=== PATIENT | female | born 1945 | race Caucasian/White ===

== ENCOUNTER 2019-09-18 18:36 | Inpatient (IN) | payer MEDICARE ==
[2019-09-18 19:26] LABS: #Basophils 0.1 thou/uL (0.0-0.2); #Eosinphils 0.2 thou/uL (0.0-0.7); #Lymphocytes 3.2 thou/uL (1.20-3.40); #Neutrophils 5.4 thou/uL (1.40-6.50); %Basophils 0.9 % (0.0-1.0); %Eosinophils 2.2 % (0.0-10.0); %Lymphocytes 32.7 % (21.0-51.0); %Monocytes 9.6 % (0.0-10.0); %Neutrophils 54.6 % (42.0-75.0); Hemoglobin 12.7 g/dL (12.0-16.0); Mean Corpuscular HGB CONC 33.4 g/dL (32.0-36.0); Mean Corpuscular Hemoglobin 29.1 pg (27.0-31.0); Mean Corpuscular Volume 87.1 fL (78.0-98.0); Mean Platelet Volume 8.3 fL (7.4-10.4); Platelet Count 191 thou/uL (130-400); RBC Distribution Width 12.6 % (11.5-14.5); Red Blood Cell (RBC) Count 4.35 mill/uL (4.20-5.40); White Blood Cell (WBC) Count 9.9 thou/uL (4.8-10.8)
[2019-09-18 19:47] LABS: Bacteria/HPF None Seen HPF (None Seen); Bilirubin Negative (Negative); Blood, Urine Negative (Negative); Clarity Clear (Clear); Glucose, Urine (Dipstick) 200 mg/dL (Negative); Leukocyte 25 Leu/uL (Negative); Nitrite Negative (Negative); Protein, Urine (Dipstick) Negative (Neg-Trace); RBC/HPF 0-3 HPF (0-3); Squamous Epithelial 0-3 HPF (0-3); Urobilinogen Normal mg/dL (Less than 2)
[2019-09-18 19:47] LABS: ALT (SGPT) 17 U/L (8-55); AST (SGOT) 18 U/L (5-34); Albumin 4.1 g/dL (3.4-4.8); Alkaline Phosphatase 181 U/L (40-110); Anion Gap 12 mmol/L (10-20); BUN (Urea Nitrogen) 14 mg/dL (9.8-20.1); Bilirubin, Total 1.1 mg/dL (0.2-1.2); Calc. Creatinine Clearance 0 mL/min (70-130); Calcium 9.8 mg/dL (7.8-10.44); Carbon Dioxide 29 mmol/L (23-31); Chloride 104 mmol/L (98-107); Estimated GFR-MDRD 65; Globulin 3.3 g/dL (2.4-3.5); Glucose 110 mg/dL (83-110); Potassium 3.5 mmol/L (3.5-5.1); Protein, Total 7.4 g/dL (6.0-8.3); Sodium 141 mmol/L (136-145)
[2019-09-18] MEDS ORDERED: Lorazepam 1 MG TAB PO PRN (23:55)
[2019-09-18] MEDS ORDERED: hydrALAZINE 20 MG/ML VIAL SLOW IVP PRN (23:56)
[2019-09-18] MEDS ORDERED: Dextrose 5% in Water 1,000 ML IV PRN (23:57)
[2019-09-18] MEDS ORDERED: tiZANidine HCl 4 MG TAB PO PRN (23:57)
[2019-09-18] MEDS ORDERED: Insulin Regular 300 UNITS/3 ML VIAL SC PRN ×2 (23:57)
[2019-09-18] MEDS ORDERED: Dextrose 50% Abboject 50 ML SYRINGE SLOW IVP PRN (23:57)
[2019-09-18] MEDS ORDERED: HYDROcodone/Acetaminophen 10/325 mg Tablet PO PRN (23:57)
[2019-09-19 01:46] VITALS: BMI 27.4
--- NOTE | 2019-09-19 03:41 | PDOC.EVN ---
Event Note - Event Note Event Note: PCP Dr Echols. Care transferred to resident team
[2019-09-19] MEDS ORDERED: Acetaminophen 325 MG TAB PO PRN (05:25)
[2019-09-19] MEDS ORDERED: Ondansetron ODT 4 MG TAB PO PRN (05:25)
--- NOTE | 2019-09-19 05:40 | PDOC.FPRHP ---
- History of Present Illness Chief Complaint: R sided foot and hand numbness History of Present Illness: 74 y/o F with pmhx of prior CVA with L sided residual weakness, DM II, HTN, CAD s/p stent, and hypothyroidism presents to [facility] via transfer from [place] ED. Pt had initial R finger tingling/numbness on Friday starting at 1200. She states this sensation gradually spread up her mid arm and then started in her R toe and foot. She developed slurred speech and unsteady gait Oh night. Pt thought she would get better, but did not improve overnight, prompting her to go to the ER. Pt states "I was walking and talking funny." Pt originally went to her clinic in [place], but was sent directly ER for her stroke like symptoms. + OLGUIN off/on in the frontal region. + v/n, X2 episodes since onset of symptoms. denies falls or vision changes. ED course: CT head: L-thalamic infarct. No acute hemorrhage. - Allergies/Adverse Reactions Allergies Allergy/AdvReac Type Severity Reaction Status Date / Time No Known Drug Allergies Allergy Verified 09/18/19 23:22 - Home Medications Medication Instructions Recorded Confirmed Type Amlodipine [Norvasc] 5 mg PO DAILY 09/18/19 09/19/19 History Aspirin [Ecotrin Low Strength] 81 mg PO DAILY 09/18/19 09/19/19 History Benazepril HCl 1 tab PO DAILY 09/18/19 09/19/19 History Glimepiride 4 mg PO DAILY 09/18/19 09/19/19 History Hydrocodone Bit/Acetaminophen 325 mg PO DAILY 09/18/19 09/19/19 History [HYDROcodone Bit/Acetaminophen] Levothyroxine Sodium [Synthroid] 100 mcg PO DAILY 09/18/19 09/19/19 History Oxybutynin [Ditropan] 5 mg PO BID 09/18/19 09/19/19 History Prasugrel [Effient] 10 mg PO DAILY 09/18/19 09/19/19 History metFORMIN HCl 1,000 mg PO QAM 09/18/19 09/19/19 History metFORMIN [Glucophage] 500 mg PO HS 09/18/19 09/19/19 History tiZANidine HCl [Tizanidine HCl] 4 mg PO DAILY 09/18/19 09/19/19 History - History PMHx: CVA 20 years ago with L sided residual weakness, DM II, HTN, CAD s/p stent , hypothyroidsim PSHx: BTL, R-wrist sx, l-eye cataract, stent last year FHx: mother: Alzheimer's disease, CHF. Father: CAD, [place] PCP: Dr. Echols Aquarium Tank Attendant: Dr. Francois - Review of Systems General: denies: fever/chills, night sweats Eyes: denies: eye pain, vision changes ENT: denies: nasal congestion, rhinorrhea Respiratory: denies: cough, shortness of breath Cardiovascular: denies: chest pain, edema Gastrointestinal: reports: nausea, vomiting. denies: diarrhea, abdominal pain Skin: denies: rashes Neurological: reports: numbness (R-hand, arm, foot, toes.), weakness (L sided residual). denies: syncope, seizure - Vital signs BP: 158/66 HR: 65 RR: 16 Tmax: 98.4 Pox: 96% on ra Wt: 77 kg - Physical Exam Constitutional: NAD, awake, alert and oriented, well developed HEENT: normocephalic and atraumatic, PERRLA, EOMI, conjunctiva clear, no scleral icterus, grossly normal vision, grossly normal hearing, MMM, oropharynx clear, good dention Neck: supple, FROM, trachea midline, no LAD, no JVD, no thyromegaly Chest: no-tender to palpation, no lesions Heart: RRR, pulses present, no edema, other (2/6 sys murmur) Lungs: CTAB, no respiratory distress, good air movement, no rales/rhonchi, no wheezing, no retractions Abdomen: soft, non-tender, bowel sounds present, no masses/distention, no hernias Musculoskeletal: normal structure, normal tone, ROM grossly normal Neurological: CN II-XII intact -Neurological: Diminished sensation over R fingers, hand, up to mid forearm Diminished sensation over R toes and foot. 4/5 strength in Upper and Lower R and Left extremities. Udee-lb-ysed intact bilaterally. slowed rapid hand alternating movements worse on L than R. Finger to nose intact bilaterally. Negative pronator drift Skin: no rash/lesions, good turgor, capillary refill <2 seconds -Skin: ecchymosis over arms Heme/Lymphatic: no purpura, no petechia Psychiatric: normal mood and affect, good judgment and insight, intact recent and remote memory FMR H&P: Results - Labs Result Diagrams: 09/18/19 19:15 09/18/19 19:15 Lab results: WBC 9.9 thou/uL (4.8-10.8) 09/18/19 19:15 Hgb 12.7 g/dL (12.0-16.0) 09/18/19 19:15 Hct 37.9 % (36.0-47.0) 09/18/19 19:15 MCV 87.1 fL (78.0-98.0) 09/18/19 19:15 Plt Count 191 thou/uL (130-400) 09/18/19 19:15 Neutrophils % 54.6 % (42.0-75.0) 09/18/19 19:15 Sodium 141 mmol/L (136-145) 09/18/19 19:15 Potassium 3.5 mmol/L (3.5-5.1) 09/18/19 19:15 Chloride 104 mmol/L (98-107) 09/18/19 19:15 Carbon Dioxide 29 mmol/L (23-31) 09/18/19 19:15 BUN 14 mg/dL (9.8-20.1) 09/18/19 19:15 Creatinine 0.86 mg/dL (0.6-1.1) 09/18/19 19:15 Glucose 110 mg/dL (83-110) 09/18/19 19:15 Calcium 9.8 mg/dL (7.8-10.44) 09/18/19 19:15 Total Bilirubin 1.1 mg/dL (0.2-1.2) 09/18/19 19:15 AST 18 U/L (5-34) 09/18/19 19:15 ALT 17 U/L (8-55) 09/18/19 19:15 Alkaline Phosphatase 181 U/L (40-110) H 09/18/19 19:15 Serum Total Protein 7.4 g/dL (6.0-8.3) 09/18/19 19:15 Albumin 4.1 g/dL (3.4-4.8) 09/18/19 19:15 Urine Ketones Negative mg/dL (Negative) 09/18/19 19:21 Urine Blood Negative (Negative) 09/18/19 19:21 Urine Nitrite Negative (Negative) 09/18/19 19:21 Ur Leukocyte Esterase 25 Swati/uL (Negative) 09/18/19 19:21 Urine RBC 0-3 HPF (0-3) 09/18/19 19:21 Urine WBC 4-6 HPF (0-3) A 09/18/19 19:21 Ur Squamous Epith Cells 0-3 HPF (0-3) 09/18/19 19:21 Urine Bacteria None Seen HPF (None Seen) 09/18/19 19:21 - Radiology Interpretation CT scan - head Status: report reviewed by me (L-sided thalamic infarct . No acute hemorrhage) FMR H&P: A/P - Problem List (1) TIA (transient ischemic attack) Current Visit: Yes Status: Acute Code(s): G45.9 - TRANSIENT CEREBRAL ISCHEMIC ATTACK, UNSPECIFIED (2) History of CVA (cerebrovascular accident) without residual deficits Current Visit: Yes Status: Acute (3) Hemiparesis, right Current Visit: Yes Status: Acute Code(s): G81.91 - HEMIPLEGIA, UNSPECIFIED AFFECTING RIGHT DOMINANT SIDE (4) HTN (hypertension) Current Visit: Yes Status: Acute Code(s): I10 - ESSENTIAL (PRIMARY) HYPERTENSION (5) CAD (coronary artery disease) Current Visit: Yes Status: Acute Code(s): I25.10 - ATHSCL HEART DISEASE OF [place] CORONARY ARTERY W/O ANG PCTRS (6) Hypothyroid Current Visit: Yes Status: Acute Code(s): E03.9 - HYPOTHYROIDISM, UNSPECIFIED - Plan 74 y/o F admitted to stroke obs for TIA, CVA rule out with R sided hemiparesis and hemioplegia 1. TIA/CVA rule out; R-sided Hemiparesis and hemiplegia; aphasia - CT head: neg for acute hemorrhage, showed l-thalamic infarct - Ordered MRI head, transthoracic echo, carotid dopplers - continue ASA, will start statin therapy. 2. Hx of previous CVA with L sided residual weakness. - 4/5 strength in L and R side. R sided weakness is new per pt. 3. Hx of HTN - will allow for permissive HTN and hold BP medication at this time. 4. Hx of DM II - goal glucose 140-180 while in hospital to decrease hypoglycemia risk. - restart home glucose medications metformin and glipizide. - Checking A1C. 5. Hx of CAD, s/p stent - TTE pending - no current chest pain, stable. 6. Hx of hypothyroidism - restart home medications. - will check TSH Code Statue: DNR, per pt Diet: CC, HH DVT ppx: SCD's Dispo: stable, admitted to stroke obs for TIA/CVA rule out with MRI. FMR H&P: Upper Level - Plan Date/Time: 09/19/19 0531 I, Uriah Nevarez MD, have evaluated this patient and agree with findings/ plan as outlined by engineering intern resident. Pertinent changes/additions are listed here. CVA vs TIA - Previous infarct seen on CT - MRI ordered for AM - Carotid Dopplers ordered for risk stratification HTN, HLD, CAD, Hypothyroidism - All other chronic conditions reviewed and medications to be restarted as appropriate PCP: Dr. Echols CODE STATUS: DNAR Disposition: Stable, will admit for further evaluation with MRI planned this AM.
[2019-09-19] MEDS ORDERED: Levothyroxine Sodium 100 MCG TAB PO SCH (06:00)
[2019-09-19 06:44] LABS: Hemoglobin A1c 7.7 % (4.0-6.0)
[2019-09-19] MEDS ORDERED: Calcium Carbonate 500 MG ChewTAB PO PRN (07:37)
[2019-09-19] MEDS ORDERED: Lorazepam 2 MG/ML VIAL SLOW IVP SCH (07:45)
[2019-09-19] MEDS ORDERED: Aspirin 81 mg Enteric Coated Tablet PO SCH (09:00)
[2019-09-19] MEDS ORDERED: Oxybutynin 5 MG TAB PO SCH (09:00)
[2019-09-19] MEDS ORDERED: Amlodipine 5 MG TAB PO SCH (09:00)
[2019-09-19] MEDS ORDERED: Glimepiride 4 MG TAB PO SCH (09:00)
[2019-09-19] MEDS ORDERED: Lisinopril 20 MG TAB PO SCH (09:00)
[2019-09-19] MEDS ORDERED: Prasugrel 10 MG TAB PO SCH (09:00)
[2019-09-19] MEDS: metFORMIN 500 MG TAB PO SCH ×2 (09:01→17:24)
[2019-09-19] MEDS: Prasugrel 10 MG TAB PO SCH (09:01)
[2019-09-19] MEDS: Glimepiride 4 MG TAB PO SCH (09:01)
[2019-09-19] MEDS: Aspirin 81 mg Enteric Coated Tablet PO SCH (09:01)
[2019-09-19] MEDS: Oxybutynin 5 MG TAB PO SCH ×2 (09:01→20:45)
--- NOTE | 2019-09-19 11:07 | HP ---
I have examined the patient and discussed the case with Dr. Ailyn Linares, and agree with her assessment and plan. HISTORY OF PRESENT ILLNESS: Briefly, Ms. Lobo is a pleasant 74-year-old white female with a prior history of stroke approximately 15-20 years ago. She presented with tingling and numbness and perhaps some mild weakness on her right side. She also had some slurred speech and unsteady gait. She was initially taken to [place] and transferred here for higher level of care. PHYSICAL EXAMINATION: GENERAL: On exam, her blood pressure is 158/66, heart rate is 65 and regular, respirations are 16, she is afebrile, her room air pulse ox is 96%. GENERAL: Currently, she is awake, alert, no distress. NECK: Supple. CARDIAC: Heart rhythm regular. No gallop or murmur noted. LUNGS: Clear. Diminished. No rales or wheezes. ABDOMEN: Flat and soft without guarding or rebound. NEUROLOGICAL: Slightly diminished strength bilaterally. Otherwise, no focal deficit. Currently, her speech is not slurred. LABORATORY DATA: CBC; white count is , hemoglobin 12.7, hematocrit 37.9 with an MCV of 87. Chemistries; sodium 141, potassium 3.5, chloride 104, bicarb 29, BUN 14, creatinine 0.86, glucose of 240. She had a CT done at the outlying ER facility showing an old lacunar infarct. ASSESSMENT: Transient ischemic attack versus stroke. PLAN: Admit. Get CTA of head and neck, echocardiogram, MRI and proceed based on findings. Begin aspirin and statin. Job ID: [id number]
--- NOTE | 2019-09-19 12:37 | MRI ---
EXAM: MRI Brain WO Con PROVIDED CLINICAL HISTORY: Ataxia, right-sided drift of arm and leg. Right-sided numbness and sensory loss. COMPARISON: CT head on 09/19/2019 obtained prior to this exam. FINDINGS: There is a focus of increased FLAIR and T2-weighted signal intensity in the left aspect of the jens c orresponding to the hypodense area seen on recent CT exam. This area does demonstrate restricted diffusion and is most compatible with an acute infarction in the left aspect of the jens. No addition al acute infarction is seen. Prominent motion artifact is present on multiple pulse sequences resulting in image degradation. Ther e is mild increased FLAIR and T2-weighted signal intensity in the periventricular white matter which is nonspecific but likely reflective of mild chronic small vessel ischemic changes. There is a linear area of decreased signal intensity within the left basal ganglia which extends laterally into the left posterior frontal lee radiata on gradient echo images suggesting hemosiderin deposit ion. This is in region of prior infarction is likely due to remote hemorrhagic infarction. There are additional increased T2-weighted signal intensity foci seen in each thalamus also seen on prior C T exam most compatible with remote lacunar infarctions. The septum pellucidum and third ventricle are in the midline. Ventricular system is normal in size, s hape, and position. Due to significant motion artifact, the intracranial flow voids are difficult to assess, but no gross abnormality is seen. The distal left vertebral artery flow-void is small in size. Mastoid effusions are seen bilaterally. Paranasal sinuses appear clear. IMPRESSION: 1. Acute lacunar infarction left thalamus 2. Remote lacunar infarctions in each thalamus. 3. Mild chronic small vessel ischemic changes. 4. Mastoid effusions bilaterally..
[2019-09-19] MEDS ORDERED: Iopamidol-370 76% 500 ML 1 ML ONE (13:43)
[2019-09-19] MEDS ORDERED: Dextrose 5% in Water 1,000 ML IV PRN (14:49)
[2019-09-19] MEDS ORDERED: HumaLOG 300 UNITS/3 ML VIAL SC PRN (14:49)
[2019-09-19] MEDS ORDERED: Dextrose 50% Abboject 50 ML SYRINGE SLOW IVP PRN (14:49)
[2019-09-19] MEDS: Atorvastatin Calcium 40 MG TAB PO SCH (20:45)
[2019-09-19] MEDS ORDERED: Atorvastatin Calcium 40 MG TAB PO SCH (21:00)
[2019-09-20 04:47] LABS: #Basophils 0.1 thou/uL (0.0-0.2); #Eosinphils 0.3 thou/uL (0.0-0.7); #Lymphocytes 3.4 thou/uL (1.20-3.40); #Monocytes 1.1 thou/uL (0.11-0.59); #Neutrophils 5.1 thou/uL (1.40-6.50); %Basophils 0.8 % (0.0-1.0); %Eosinophils 3.4 % (0.0-10.0); %Lymphocytes 34.1 % (21.0-51.0); %Monocytes 10.5 % (0.0-10.0); %Neutrophils 51.1 % (42.0-75.0); Hemoglobin 13.2 g/dL (12.0-16.0); Mean Corpuscular HGB CONC 32.4 g/dL (32.0-36.0); Mean Corpuscular Hemoglobin 28.4 pg (27.0-31.0); Mean Corpuscular Volume 87.8 fL (78.0-98.0); Mean Platelet Volume 8.4 fL (7.4-10.4); Platelet Count 205 thou/uL (130-400); RBC Distribution Width 12.9 % (11.5-14.5); Red Blood Cell (RBC) Count 4.65 mill/uL (4.20-5.40); White Blood Cell (WBC) Count 9.9 thou/uL (4.8-10.8)
[2019-09-20 05:14] LABS: ALT (SGPT) 18 U/L (8-55); AST (SGOT) 19 U/L (5-34); Alkaline Phosphatase 171 U/L (40-110); Anion Gap 13 mmol/L (10-20); BUN (Urea Nitrogen) 16 mg/dL (9.8-20.1); Bilirubin, Total 0.9 mg/dL (0.2-1.2); Calc. Creatinine Clearance 54 mL/min (70-130); Calcium 9.6 mg/dL (7.8-10.44); Carbon Dioxide 26 mmol/L (23-31); Chloride 103 mmol/L (98-107); Estimated GFR-MDRD 48; Globulin 3.4 g/dL (2.4-3.5); Glucose 154 mg/dL (83-110); Potassium 3.9 mmol/L (3.5-5.1); Protein, Total 7.4 g/dL (6.0-8.3); Sodium 138 mmol/L (136-145)
--- NOTE | 2019-09-20 05:20 | PDOC.FM ---
- Subjective Subjective: Patient reports she is doing well. Discussed findings on MRI/CTA. Patient surprised that she had another stroke, clearly frustrated. Discussed that we will continue with PT/OT and have CM see if patient can continue PT/OT outpatient, per patient's wishes, to get her back to baseline. Patient agreeable with plan of care. - Objective Vital Signs & Weight: Vital Signs (12 hours) Temp Pulse Resp BP Pulse Ox 09/20/19 04:00 98.2 F 82 16 190/66 H 96 09/20/19 00:14 98.2 F 64 18 143/55 H 97 09/19/19 20:10 98.5 F 79 16 122/70 96 Weight Weight 77.111 kg I&O: 09/18/19 09/19/19 09/20/19 06:59 06:59 06:59 Intake Total 600 Balance 600 Result Diagrams: 09/20/19 04:38 09/20/19 04:38 EKG Reviewed by me: Yes (sinus 60s-70s) Phys Exam - Physical Examination Constitutional: NAD HEENT: moist MMs, sclera anicteric Neck: supple, full ROM Respiratory: no wheezing, clear to auscultation bilateral Cardiovascular: RRR, no significant murmur Gastrointestinal: soft, non-tender Musculoskeletal: no edema, pulses present Neurological: moves all 4 limbs BLE and BUE 4/5 strength; some dysarthria noted Psychiatric: normal affect, A&O x 3 Skin: no rash, normal turgor Dx/Plan (1) CVA (cerebral vascular accident) Code(s): I63.9 - CEREBRAL INFARCTION, UNSPECIFIED Status: Acute (2) CAD (coronary artery disease) Code(s): I25.10 - ATHSCL HEART DISEASE OF [place] CORONARY ARTERY W/O ANG PCTRS Status: Chronic (3) HTN (hypertension) Code(s): I10 - ESSENTIAL (PRIMARY) HYPERTENSION Status: Chronic (4) Hemiparesis, right Code(s): G81.91 - HEMIPLEGIA, UNSPECIFIED AFFECTING RIGHT DOMINANT SIDE Status : Acute (5) History of CVA (cerebrovascular accident) without residual deficits Status: Chronic (6) Hypothyroid Code(s): E03.9 - HYPOTHYROIDISM, UNSPECIFIED Status: Chronic - Plan Plan: Patient is a 74F admitted to stroke obs for CVA with R sided hemiparesis and hemioplegia #CVA; R-sided Hemiparesis and hemiplegia; dysarthria - CT head: neg for acute hemorrhage, showed l-thalamic infarct - MRI head: L jens/thalamus acute lacunar infarct, consistent with CTA head/ neck - continue ASA, prasugrel, statin - PT rec rehab, patient states she would prefer outpatient pt/ot; post acute rehab screen today #Hx of previous CVA with L sided residual weakness. - 4/5 strength BLE and BUE. R sided weakness is new per pt. #Hx of HTN - re-starting home BP meds this am #Hx of DM II - continue home glucose medications metformin and glipizide. - A1C 7.7 #Hx of CAD, s/p stent - Echo: EF 55-60% - continue home meds - no current chest pain, stable. #Hx of hypothyroidism - continue home medications. Code Status: DNR Diet: CC, HH DVT ppx: SCD's Dispo: stable, admitted to stroke obs for CVA; post acute screen pending for outpatient PT/OT Addendum - Attending - Attending Attestation Date/Time: 09/20/19 8523 I personally evaluated the patient and discussed the management with Dr. Oreilly I agree with the History, Examination, Assessment and Plan documented above with any addition or exceptions noted below. Will consult Neurologyy as CVA ruled in . Discussed rehab option with patient she is good candidate albeit deconditioned as baseline prior to CVA. Instrument Tester to be consulted. Patient advised I believe she will fair better if she goes into rehab situation at least few weeks before attempting home.
[2019-09-20] MEDS: Levothyroxine Sodium 100 MCG TAB PO SCH (05:47)
[2019-09-20] MEDS: HumaLOG 300 UNITS/3 ML VIAL SC PRN ×2 (05:49→10:39)
[2019-09-20] MEDS: Amlodipine 5 MG TAB PO SCH (09:47)
[2019-09-20] MEDS: Glimepiride 4 MG TAB PO SCH (09:47)
[2019-09-20] MEDS: Aspirin 81 mg Enteric Coated Tablet PO SCH (09:47)
[2019-09-20] MEDS: metFORMIN 500 MG TAB PO SCH ×2 (09:47→17:08)
[2019-09-20] MEDS: Lisinopril 20 MG TAB PO SCH (09:47)
[2019-09-20] MEDS: Prasugrel 10 MG TAB PO SCH (09:48)
[2019-09-20] MEDS: tiZANidine HCl 4 MG TAB PO SCH (09:48)
[2019-09-20] MEDS: Oxybutynin 5 MG TAB PO SCH ×2 (09:48→21:07)
[2019-09-20] MEDS: Atorvastatin Calcium 40 MG TAB PO SCH (21:07)
--- NOTE | 2019-09-20 23:56 | CON ---
DATE OF CONSULTATION: 09/20/2019 HISTORY OF PRESENT ILLNESS: I was asked to see Ms. Lobo to evaluate her for carotid stenosis in the setting of a left hemispheric cerebrovascular accident. Ms. Lobo is a 74-year-old woman, who was admitted through the emergency department with right-sided arm and leg weakness along with slurred speech. Her weakness has improved, but her speech remains slurred. She has a history of right-sided cerebrovascular accident, which was managed in [place] approximately 20 years ago. She said she really did not have any therapy or changes in her medical regimen recommended at that time. She takes an aspirin only as anti-platelet agent currently. She has undergone coronary stent in not so distant past by Dr. Pee Francois. Currently, she is resting comfortably on the stroke unit without current complaint. PAST MEDICAL HISTORY: 1. Cerebrovascular accident involving the right brain approximately 20 years ago. 2. Diabetes mellitus. 3. Hypertension. 4. Coronary artery disease, status post stenting. 5. Hypothyroidism. PAST SURGICAL HISTORY: 1. BTL. 2. Right wrist surgery. 3. Cataract surgery. 4. Coronary stent. ALLERGIES: NONE. CURRENT MEDICATIONS: 1. Aspirin 81 mg daily. 2. Amlodipine 5 mg daily. 3. Benazepril daily. 4. Glimepiride 4 mg daily. 5. Levothyroxine 100 mcg daily. 6. Ditropan 5 mg b.i.d. 7. Effient 10 mg daily. 8. Metformin 1000 mg daily. 9. Tizanidine 4 mg daily. SOCIAL HISTORY: She does not use tobacco. PHYSICAL EXAMINATION: GENERAL: This is a well-developed, well-nourished woman, resting comfortably on the stroke unit. VITAL SIGNS: Her height is 5 feet 6 inches, weight is 170 pounds, BSA is 1.89, temperature is 98.1, pulse is 85 and regular, and blood pressure 135/74. NECK: Supple. She has bilateral carotid bruits. CHEST: Clear bilaterally. HEART: Rhythm is regular without murmur. ABDOMEN: Soft and nontender. EXTREMITIES: No edema. ASSESSMENT AND PLAN: This is a very pleasant 74-year-old woman with a left hemispheric acute cerebrovascular accident. She is recovering. She is on aspirin and Effient at home. I would continue these and we will see her back in the office in approximately a week. At that time, we will discuss carotid endarterectomy versus TCAR carotid stenting. Job ID: [id number]
[2019-09-21 04:58] LABS: #Eosinphils 0.4 thou/uL (0.0-0.7); #Lymphocytes 2.6 thou/uL (1.20-3.40); #Monocytes 0.9 thou/uL (0.11-0.59); #Neutrophils 4.3 thou/uL (1.40-6.50); %Basophils 0.5 % (0.0-1.0); %Lymphocytes 31.9 % (21.0-51.0); %Monocytes 10.4 % (0.0-10.0); %Neutrophils 52.2 % (42.0-75.0); Hemoglobin 11.9 g/dL (12.0-16.0); Mean Corpuscular HGB CONC 30.8 g/dL (32.0-36.0); Mean Corpuscular Hemoglobin 27.2 pg (27.0-31.0); Mean Corpuscular Volume 88.3 fL (78.0-98.0); Mean Platelet Volume 8.5 fL (7.4-10.4); Platelet Count 184 thou/uL (130-400); RBC Distribution Width 12.8 % (11.5-14.5); Red Blood Cell (RBC) Count 4.39 mill/uL (4.20-5.40); White Blood Cell (WBC) Count 8.1 thou/uL (4.8-10.8)
--- NOTE | 2019-09-21 05:15 | PDOC.FM ---
- Subjective Subjective: Patient doing well. Reports she feels "more like myself" today. Discussed CM sending [facility] referral yesterday, patient currently agreeable with plan of care. - Objective Vital Signs & Weight: Vital Signs (12 hours) Temp Pulse Resp BP BP Pulse Ox 09/21/19 04:00 98.1 F 65 16 126/50 L 100 09/21/19 00:00 98.1 F 78 18 148/79 H 100 09/20/19 20:00 98.3 F 76 16 156/110 H 97 Weight Admit Weight 77.111 kg Weight 77.111 kg I&O: 09/19/19 09/20/19 09/21/19 06:59 06:59 06:59 Intake Total 1210 900 Output Total 4 Balance 1206 900 Result Diagrams: 09/21/19 04:46 09/21/19 04:46 EKG Reviewed by me: Yes (sinus 60s) Phys Exam - Physical Examination Constitutional: NAD HEENT: moist MMs, sclera anicteric Neck: supple, full ROM Respiratory: no wheezing, clear to auscultation bilateral Cardiovascular: RRR, no significant murmur Gastrointestinal: soft, non-tender Musculoskeletal: no edema, pulses present 4/5 strength BLE and BUE Neurological: moves all 4 limbs mild dysarthria Lymphatic: no nodes Psychiatric: normal affect, A&O x 3 Skin: no rash, normal turgor Dx/Plan (1) CVA (cerebral vascular accident) Code(s): I63.9 - CEREBRAL INFARCTION, UNSPECIFIED Status: Acute (2) CAD (coronary artery disease) Code(s): I25.10 - ATHSCL HEART DISEASE OF [place] CORONARY ARTERY W/O ANG PCTRS Status: Chronic (3) HTN (hypertension) Code(s): I10 - ESSENTIAL (PRIMARY) HYPERTENSION Status: Chronic (4) Hemiparesis, right Code(s): G81.91 - HEMIPLEGIA, UNSPECIFIED AFFECTING RIGHT DOMINANT SIDE Status : Acute (5) History of CVA (cerebrovascular accident) without residual deficits Status: Chronic (6) Hypothyroid Code(s): E03.9 - HYPOTHYROIDISM, UNSPECIFIED Status: Chronic - Plan Plan: Patient is a 74F admitted to stroke for CVA with R sided hemiparesis and hemioplegia #CVA; R-sided Hemiparesis and hemiplegia; dysarthria - CT head: neg for acute hemorrhage, showed l-thalamic infarct - MRI head: L jens/thalamus acute lacunar infarct, consistent with CTA head/ neck - continue ASA, prasugrel, statin - PT and OT rec rehab, referral sent to [facility] yesterday afternoon, pending placement #Hx of previous CVA with L sided residual weakness. - 4/5 strength BLE and BUE. R sided weakness is new per pt. #Carotid Stenosis -Dr. Lau met with pt 09/20 -patient is to f/u with Dr. Lau in 1 week to discuss carotid endarterectomy vs TCAR carotid stenting #Hx of HTN - continue home BP meds this am #Hx of DM II - continue home glucose medications metformin and glipizide. - A1C 7.7 -required 7 humalog yesterday on ISS, will start 3u lantus qam today #Hx of CAD, s/p stent - Echo: EF 55-60% - continue home meds - no current chest pain, stable. #Hx of hypothyroidism - continue home medications. Code Status: DNR Diet: CC, HH DVT ppx: SCD's Dispo: stable, admitted to stroke for CVA; [facility] placement pending Addendum - Attending - Attending Attestation Date/Time: 09/21/19 6633 I personally evaluated the patient and discussed the management with Dr. Oreilly I agree with the History, Examination, Assessment and Plan documented above with any addition or exceptions noted below. Patient currently well motivated for rehabilitation. Patient aware to f/u with PCP and need to also f/u with CV surgery regard carotid disease.
[2019-09-21 05:22] LABS: ALT (SGPT) 16 U/L (8-55); AST (SGOT) 25 U/L (5-34); Albumin 3.5 g/dL (3.4-4.8); Alkaline Phosphatase 155 U/L (40-110); Anion Gap 13 mmol/L (10-20); BUN (Urea Nitrogen) 15 mg/dL (9.8-20.1); Bilirubin, Total 0.9 mg/dL (0.2-1.2); Calc. Creatinine Clearance 68 mL/min (70-130); Calcium 9.3 mg/dL (7.8-10.44); Carbon Dioxide 24 mmol/L (23-31); Chloride 107 mmol/L (98-107); Estimated GFR-MDRD 62; Globulin 3.4 g/dL (2.4-3.5); Glucose 88 mg/dL (83-110); Potassium 4.3 mmol/L (3.5-5.1); Protein, Total 6.9 g/dL (6.0-8.3); Sodium 140 mmol/L (136-145)
[2019-09-21] MEDS: Levothyroxine Sodium 100 MCG TAB PO SCH (06:41)
[2019-09-21] MEDS ORDERED: Insulin Glargine 3 UNITS in Pre-Filled Syringe 1 EACH SC SCH (09:00)
[2019-09-21] MEDS ORDERED: Clopidogrel Bisulfate 75 MG TAB PO SCH (09:00)
[2019-09-21] MEDS: Amlodipine 5 MG TAB PO SCH (09:32)
[2019-09-21] MEDS: Glimepiride 4 MG TAB PO SCH (09:32)
[2019-09-21] MEDS: Oxybutynin 5 MG TAB PO SCH (09:33)
[2019-09-21] MEDS: Aspirin 81 mg Enteric Coated Tablet PO SCH (09:33)
[2019-09-21] MEDS: Lisinopril 20 MG TAB PO SCH (09:34)
[2019-09-21] MEDS: metFORMIN 500 MG TAB PO SCH ×2 (09:34→16:06)
[2019-09-21] MEDS: tiZANidine HCl 4 MG TAB PO SCH (10:08)
--- NOTE | 2019-09-21 10:12 | CT ---
EXAM: Noncontrast CT head CT angiogram head and neck with IV contrast and 3-D reconstructions PROVIDED CLINICAL HISTORY: Ataxia, right-sided drift of arm and leg and sensory loss. History of prior stroke with left-sided re sidual weakness. COMPARISON: None FINDINGS: Noncontrast CT head: Diminished attenuation is seen in the periventricular white matter which is nonspecific but likely re flective of mild chronic small vessel ischemic changes. Low-density foci are seen in each thalamus suggesting lacunar infarctions of indeterminate age. Round low-density focus is seen in the left aspe ct of the jens related to a lacunar infarction of indeterminate age. No acute cortical infarction, hemorrhage, mass effect, or midline shift is seen. Mild cerebral volume loss is present. The ventricu lar system is normal in size, shape, and position. Visualized paranasal sinuses are clear. Mastoid effusions are seen in the inferior right mastoid air cells. Calvarial structures have a normal appearance. CT angiogram head and neck: Vascular calcifications are seen in the aortic arch. There is a normal arrangement of the great vesse ls at the aortic arch which are patent. The innominate artery and right subclavian artery are patent. Portions of the left subclavian artery are obscured due to dense contrast within the subclavi an vein. The common carotid arteries are patent. Dense vascular calcifications are seen involving the origin o f the left internal carotid artery. There is atherosclerotic plaque seen in the proximal left internal carotid artery with dense vascular calcifications limiting evaluation of the proximal left i nternal carotid artery. However, there is suggestion of moderate to severe narrowing of the proximal left internal carotid artery with narrowing measuring greater than 50%. Dense vascular calci fications are also seen at the carotid artery bifurcation on the right with at least moderate degree of narrowing present but less than the contralateral degree of narrowing on the left. Remainde r of the internal carotid arteries are patent to the skull base. The left vertebral artery is very small in size and arises from the aortic arch. The left vertebral a rtery terminates in PICA. The right vertebral artery is dominant and patent. The basilar artery and bilateral posterior cerebral arteries are patent. Dense vascular calcifications are seen in the carotid siphons. The bilateral middle cerebral and ante rior cerebral arteries are patent. No focal stenosis or branch occlusion is appreciated. The anterior communicating artery is visualized and appears patent. No definite intracranial aneurysm is seen within the limitations of the technique of this exam. [place] lenses are not visualized. The bilateral submandibular and parotid glands as well as small thyroid gland have a normal appearanc e. Visualized upper lung zones are clear. IMPRESSION: 1. Lacunar infarction in the left jens as well as lacunar infarctions in each thalamus which are of i ndeterminate age. No acute cortical infarction is identified. 2. Chronic small vessel ischemic changes and cerebral volume loss. 3. Left vertebral artery arises from the aortic arch and terminates in PICA. The right vertebral olamide ry is patent. 4. Dense vascular calcifications proximal left internal carotid artery limiting adequate evaluation, but there is moderate to severe narrowing involving the proximal left internal carotid artery. Moderate narrowing of the proximal right internal carotid artery is present. Transcribed Date/Time: 09/21/2019 10:11 AM
[2019-09-21] MEDS: HumaLOG 300 UNITS/3 ML VIAL SC PRN (12:38)
[2019-09-21 15:43] VITALS: BP 143/63; TEMP 98
--- NOTE | 2019-09-21 22:16 | CON ---
DATE OF CONSULTATION: 09/21/2019 CONSULTING PHYSICIAN: Hospitalist Service. IMPRESSION: 1. Left thalamic stroke. 2. Bilateral internal carotid artery stenosis with calcification. 3. Aspirin and Effient failure. PLAN: 1. Discontinue Effient and start Plavix. 2. Vascular Surgery followup for stenting. HISTORY OF PRESENT ILLNESS: Ms. Lobo is a 74-year-old woman, who presented with complaints of right-sided numbness and headache. Her MRI confirmed a left thalamic stroke. Her CT angiogram showed calcific stenosis of the proximal left internal carotid artery in moderate to severe range and moderate stenosis on the right. Echocardiogram showed a normal ejection fraction of 50% to 60%. Her lab work was unremarkable other than elevated blood glucoses. She has been consulted on by Vascular Surgery as a plan to deal with her carotid stenosis as an outpatient. She has been getting around independently around the unit. She has some intermittent headache and persistent numbness on the right side. EKG shows normal sinus rhythm. PAST MEDICAL HISTORY: Diabetes. ALLERGIES: NONE REPORTED. SOCIAL HISTORY: No tobacco. FAMILY HISTORY: Unremarkable. REVIEW OF SYSTEMS: Ten-system review of systems is otherwise negative. PHYSICAL EXAMINATION: VITAL SIGNS: Pulse 68, respirations 18. HEENT: Pupils equal and reactive. Conjunctivae clear. Oropharynx clear. Cranium, normocephalic and atraumatic. NECK: Supple. EXTREMITIES: No cyanosis. NEUROLOGIC: She is alert and appropriate. Her speech is fluent and clear. Cranial nerves are intact other than some diminished light touch on the right side of the face. Sensation is diminished in the right arm and leg. Muscle strength is normal bilaterally. No abnormal movements were seen. She can walk independently. SUMMARY: This is an elderly lady with lacunar stroke despite two antiplatelet agents. Effient has not been shown effective in cerebrovascular disease. Plavix would be a better choice for the long chain quiller tender. I would be happy to follow up with her as an outpatient. Job ID: [id number]
== END 2019-09-21 19:06 | DRG 65 ==
LOC: ERS 18:36 → 2SE 21:41 → INTOOBSV 21:41 → OBSVTOIN 09-19 13:21
PROVIDERS: ADMIT Internal Medicine; ATTEND Family Medicine
DX: I63.81 Other cerebral infarction due to occlusion or stenosis of small artery (principal); G81.91 Hemiplegia, unspecified affecting right dominant side; Z66 Do not resuscitate; R47.01 Aphasia; I25.10 Atherosclerotic heart disease of native coronary artery without angina pectoris; E03.9 Hypothyroidism, unspecified; E11.9 Type 2 diabetes mellitus without complications; I10 Essential (primary) hypertension; I65.23 Occlusion and stenosis of bilateral carotid arteries; R29.703 NIHSS score 3; R40.2362 Coma scale, best motor response, obeys commands, at arrival to emergency department; R40.2142 Coma scale, eyes open, spontaneous, at arrival to emergency department; R40.2252 Coma scale, best verbal response, oriented, at arrival to emergency department; Z95.5 Presence of coronary angioplasty implant and graft; Z79.899 Other long term (current) drug therapy; Z79.82 Long term (current) use of aspirin; Z79.890 Hormone replacement therapy; Z79.84 Long term (current) use of oral hypoglycemic drugs
CPT/HCPCS: 36415; 36416; 70496; 70498; 70551; 80053; 81003; 81015; 83036; 84443; 85025; 93306; 99285; J1815; J2060; Q9967